=== PATIENT | female | born 1960 ===

== ENCOUNTER 2022-11-12 15:13 | Inpatient (IN) | payer OTHER ==
[~2022-11-12] VITALS: Ht 147.3 cm; Wt 45.4 kg
[2022-11-12] MEDS ORDERED: NABUMETONE500 MG (20:13)
[2022-11-12] MEDS ORDERED: TRAM1TAB98 (20:13)
[2022-11-12] MEDS ORDERED: LITHIUM CARBON450 MG (20:14)
[2022-11-12] MEDS ORDERED: NORFLEX100MG (20:14)
[2022-11-12] MEDS ORDERED: BUPROPION HCL200 MG (20:14)
[2022-11-14] MEDS ORDERED: SPIRONOLACTONE50 MG PO (14:08)
[2022-11-14] MEDS ORDERED: METOLAZONE5 MG PO (14:08)
[2022-11-14] MEDS ORDERED: DAFLONEX-XL 11300 MG PO (14:09)
[2022-11-14] MEDS ORDERED: LASIX20 MG PO (14:11)
[2022-11-14] MEDS ORDERED: ELIQUIS5 MG PO (14:11)
[2022-11-14] MEDS ORDERED: PEPCID AC20 MG PO (14:12)
== END 2022-11-14 16:19 | disposition home or self-care (01) | DRG 686 ==
LOC: MEDJ 15:13 → MEDI 15:27
PROVIDERS: ADMIT Internal Medicine Hematology & Oncology; ATTEND Internal Medicine Hematology & Oncology
PROC: BW40ZZZ Ultrasonography of Abdomen (ICD-10-PCS; 2022-11-12)
PROC: BW4GZZZ Ultrasonography of Pelvic Region (ICD-10-PCS; 2022-11-12)
PROC: 0W9G3ZZ Drainage of Peritoneal Cavity, Percutaneous Approach (ICD-10-PCS; principal; 2022-11-13)
DX: C64.1 Malignant neoplasm of right kidney, except renal pelvis (principal); I82.220 Acute embolism and thrombosis of inferior vena cava; C77.2 Secondary and unspecified malignant neoplasm of intra-abdominal lymph nodes; R60.1 Generalized edema

== ENCOUNTER 2022-11-16 17:08 | Inpatient (IN) | payer OTHER ==
[~2022-11-16] VITALS: Ht 157.5 cm; Wt 45.4 kg
[~2022-11-16 17:08] MED LIST: BUPROPION HCL200 MG; DAFLONEX-XL 11300 MG PO; ELIQUIS5 MG PO; LASIX20 MG PO; LITHIUM CARBON450 MG; METOLAZONE5 MG PO; NABUMETONE500 MG; NORFLEX100MG; PEPCID AC20 MG PO; SPIRONOLACTONE50 MG PO; TRAM1TAB98
== END 2022-11-25 22:21 | disposition home or self-care (01) | DRG 686 ==
LOC: ER 17:08 → MEDI 11-17 01:00
PROVIDERS: ADMIT Internal Medicine; ATTEND Internal Medicine
PROC: 0W9G3ZZ Drainage of Peritoneal Cavity, Percutaneous Approach (ICD-10-PCS; principal; 2022-11-17)
PROC: 02HV33Z Insertion of Infusion Device into Superior Vena Cava, Percutaneous Approach (ICD-10-PCS; 2022-11-18)
PROC: 4A12X4Z Monitoring of Cardiac Electrical Activity, External Approach (ICD-10-PCS; 2022-11-21)
DX: C64.1 Malignant neoplasm of right kidney, except renal pelvis (principal); I81 Portal vein thrombosis; K72.01 Acute and subacute hepatic failure with coma; R18.8 Other ascites; C77.2 Secondary and unspecified malignant neoplasm of intra-abdominal lymph nodes; C78.02 Secondary malignant neoplasm of left lung; C78.01 Secondary malignant neoplasm of right lung; E87.1 Hypo-osmolality and hyponatremia; N18.4 Chronic kidney disease, stage 4 (severe); Z20.822 Contact with and (suspected) exposure to COVID-19; R41.82 Altered mental status, unspecified; Z74.01 Bed confinement status